=== PATIENT | male | born 1975 | race Caucasian/White ===

== ENCOUNTER 2022-08-01 13:02 | Emergency (ER) | payer SELFPAY ==
--- NOTE | ~2022-08-01 | CT_ITS ---
EXAMINATION: CT lumbar spine wo con DATE: 08/01/2022 13:47 INDICATION: Low back pain. TECHNIQUE: Computed tomography (CT) of the lumbar spine was performed without intravenous contrast. A utomated exposure control and iterative reconstruction technique were employed. The dose-length produ ct was 444.90 mGy-cm. COMPARISON: None FINDINGS: There is 4 degrees levocurvature of lumbar spine. There is mild chronic anterior wedging of T12 vertebral body. There are Schmorl's nodes at multiple levels. There is mildly decreased disc hei ght at T12-L1, L1-L2, L2-L3, and L3-L4. There are old fractures of left L2-L4 transverse processes. T he following disc levels are specifically discussed: T12-L1: The disc is bulging. There is mild bilateral facet joint osteoarthritis. There is no neural f oraminal stenosis. There is mild central canal stenosis. L1-L2: The disc is bulging. There is mild bilateral facet joint osteoarthritis. There is no neural fo raminal stenosis. There is mild central canal stenosis. L2-L3: The disc is bulging. There is mild bilateral facet joint osteoarthritis. There is mild bilater al neural foraminal stenosis. There is mild central canal stenosis. L3-L4: The disc is bulging. There is mild bilateral facet joint osteoarthritis. There is mild right a nd moderate left neural foraminal stenosis. There is mild central canal stenosis. L4-L5: The disc is bulging. There is mild bilateral facet joint osteoarthritis. There is moderate pili ateral neural foraminal stenosis. There is mild central canal stenosis. L5-S1: The disc is bulging. There is mild right and severe left facet joint osteoarthritis. There is mild right and moderate left neural foraminal stenosis. There is mild central canal stenosis. IMPRESSION: 1. Moderate lumbar spondylosis. Reviewed, dictated and finalized at location A. NE TURNER
--- NOTE | ~2022-08-01 | CT_ITS ---
EXAMINATION: CT hip LT wo con DATE: 08/01/2022 13:47 INDICATION: Posterior left hip pain TECHNIQUE: High resolution computed tomography (CT) of the left hip was performed without intravenous contrast. Additional sagittal and coronal reconstructions were performed. Automated exposure control and iterative reconstruction technique were employed. The dose-length product was 467.22 mGy-cm. COMPARISON: None FINDINGS: Bone alignment is normal. No fracture or suspected avascular necrosis. Mild left hip osteoarthritis w ith mild nonuniform joint space narrowing at the margin of the posterior and posterosuperior aspect o f the joint space. No left hip joint effusion. Mild osteoarthritis at the visualized portion of the l eft sacroiliac joint. Several phleboliths and no free fluid in the visualized left hemipelvis. No pat hologically enlarged left pelvic or inguinal lymphadenopathy. IMPRESSION: 1. Mild left hip and sacroiliac osteoarthritis. No hip joint effusion or acute osseous abnormality. Reviewed, dictated and finalized at location A. LER MACHINE OPERATOR
[2022-08-01 13:02] VITALS: BP 129/97; PULSE 82; RESP 16; TEMP 36.9; O2SAT 96
[2022-08-01] MEDS: KETOROLAC (*BKC) 60 MG/2 ML VIAL IM (13:54)
--- NOTE | 2022-08-01 14:01 | ED.BACK ---
HPI - Back Pain/Injury General Chief Complaint: Back Pain/Injury Stated Complaint: back and left hip pain Time Seen by Provider: 08/01/22 13:10 Source: patient Mode of arrival: ambulatory Limitations: no limitations History of Present Illness HPI Narrative: this is a 47-year-old gentleman that has been having left low back pain radiating to his left for the last week and today while work doing some intense lifting has increased pain that he rates about an 8/10 currently no numbness or tingling no dysuria no saddle paresthesias no fever chills. MD elicited complaint: back pain Pertinent past history: prior back pain Onset (ago): day(s) Timing: constant Severity: moderate Pain scale (0-10): 8 Quality: sharp Location: lumbar spine Context: while lifting Associated symptoms: denies other symptoms Related Data Allergies Allergy/AdvReac Type Severity Reaction Status Date / Time No Known Allergies Allergy Verified 08/01/22 13:25 Review of Systems Review of Systems: All systems reviewed & are unremarkable except as noted in HPI and below PMFSH Past Medical History Medical History Chronic back pain Exam Const: General: healthy appearing Nutritional Appearance: well nourished Orientation/consciousness: patient oriented x3 Limitations: no limitations HENMT: Head: normal to inspection Ears: external ears normal Face/Nose/Sinus: Normal external nose present Mouth: Yes Normal oral and palatal mucosa present Eyes: Conjunctivae: conjunctivae normal Pupils: Equal, round and reactive pupils present EOM: EOMs intact bilaterally Direct Ophthalmoscopy: no photophobia Neck: Neck: normal visual inspection, no lymphadenopathy and no meningeal signs Chest: Chest palpation & inspection: normal inspection of the chest Resp: Effort & Inspection: normal respiratory effort Auscultation: clear to auscultation bilaterally Cardio: Rate: regular rate Rhythm: regular rhythm GI: Auscultation: normal bowel sounds : General: Yes bladder normal to palpation Back/Spine/Pelvis: Back: no CVA tenderness Skin: General skin exam: normal color Rashes: no rashes Wounds: no wounds Neuro: General: patient oriented x3, moves all extremities, no meningeal signs and no focal motor deficits Extrem: General: normal to inspection Psych: Mental Status: mental status grossly normal Affect: normal affect Course Course Emergency Course: scans reviewed of his lower back and left hip and patient received 60mg IM Toradol and states his pain level has improved. Vital Signs Vital signs: Vital Signs Temperature 36.9 C 08/01/22 13:02 Pulse Rate 82 08/01/22 13:02 Respiratory Rate 16 08/01/22 13:02 Blood Pressure 129/97 H 08/01/22 13:02 Pulse Oximetry 96 08/01/22 13:02 Oxygen Delivery Room Air 08/01/22 13:02 Temperature 36.9 C 08/01/22 13:02 Pulse Rate 82 08/01/22 13:02 Respiratory Rate 16 08/01/22 13:02 Blood Pressure 129/97 H 08/01/22 13:02 Pulse Oximetry 96 08/01/22 13:02 Oxygen Delivery Room Air 08/01/22 13:02 Critical Care Time Critical Care Time Critical Care Time: No Discharge Plan Discharge Clinical Impression: Bulging lumbar disc Sciatica Qualifiers: Laterality: left Qualified Code(s): M54.32 - Sciatica, left side Strain of lumbar region Qualifiers: Encounter type: initial encounter Qualified Code(s): S39.012A - Strain of muscle, fascia and tendon of lower back, initial encounter Patient Disposition: Home, Self-Care Condition: Stable Instructions: Antibiotic Form, Sciatica (ED), Acute Low Back Pain (ED) Additional Instructions: and take medicine as prescribed and follow-up primary care physician if symptoms persist or worsen. Prescriptions: New tramadol 50 mg tablet 50 mg PO Q6H PRN (Reason: pain) Qty: 20 0RF Follow-up/Referrals: UNKNOWN,DOCTOR [Primary Care Provider] - Time of Disposi
[2022-08-01 14:03] VITALS: BP 111/76; PULSE 69; RESP 18; TEMP 37.1; O2SAT 96
== END 2022-08-01 14:31 | disposition home or self-care (01) ==
LOC: CHSED 14:06
PROVIDERS: Emergency Provider Emergency Medicine
DX: M54.32 Sciatica, left side (principal); S39.012A Strain of muscle, fascia and tendon of lower back, initial encounter; M51.36 Other intervertebral disc degeneration, lumbar region; X50.0XXA Overexertion from strenuous movement or load, initial encounter
CPT/HCPCS: 72131; 73700; 96372; 99284; J1885

== ENCOUNTER 2023-01-23 09:50 | Emergency (ER) | payer SELFPAY ==
[2023-01-23 09:52] VITALS: BP 136/83; PULSE 70; TEMP 36.2; O2SAT 99
[2023-01-23 10:01] VITALS: BP 136/83; PULSE 70; RESP 17; TEMP 36.2; O2SAT 99
--- NOTE | 2023-01-23 10:02 | ED.GENADULT ---
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 No fevers, chills, retention, incontinence, or focal weakness. Related Data Allergies Allergy/AdvReac Type Severity Reaction Status Date / Time No Known Allergies Allergy Verified 01/23/23 10:01 Review of Systems Review of Systems: All systems reviewed & are unremarkable except as noted in HPI and below Constitutional: Constitutional: Denies chills and Denies fever(s) ENT: Denies dysphagia Cardiovascular: Cardiovascular: Denies chest pain Respiratory: Respiratory: Denies dyspnea PMFSH Past Medical History Medical History Chronic back pain Exam Const: General: healthy appearing and no acute distress Nutritional Appearance: well nourished Eyes: Conjunctivae: conjunctivae normal Resp: Effort & Inspection: normal respiratory effort and not labored Cardio: Rate: regular rate GI: Inspection: non-distended Back/Spine/Pelvis: Back: no CVA tenderness Other: no spinal tenderness Skin: General skin exam: normal color, no jaundice and no pallor Neuro: General: patient oriented x3 and moves all extremities Gait exam (Neuro): Normal gait present Extrem: General: normal to inspection Course Vital Signs Vital signs: Vital Signs Temperature 36.2 C L 01/23/23 09:52 Pulse Rate 70 01/23/23 09:52 Blood Pressure 136/83 01/23/23 09:52 Pulse Oximetry 99 01/23/23 09:52 Oxygen Delivery Room Air 01/23/23 09:52 Temperature 36.2 C L 01/23/23 09:52 Pulse Rate 70 01/23/23 09:52 Blood Pressure 136/83 01/23/23 09:52 Pulse Oximetry 99 01/23/23 09:52 Oxygen Delivery Room Air 01/23/23 09:52 Medical Decision Making MDM Narrative Medical decision making narrative: left low back pain DDx sciatica, muscle spasm, muscle strain, neuroforaminal stenosis, no evidence of fracture, disc herniation, fracture, infection, or cauda equina Vital Signs Vital Signs: Vital Signs Temperature 36.2 C L 01/23/23 09:52 Pulse Rate 70 01/23/23 09:52 Blood Pressure 136/83 01/23/23 09:52 Pulse Oximetry 99 01/23/23 09:52 Oxygen Delivery Room Air 01/23/23 09:52 Temperature 36.2 C L 01/23/23 09:52 Pulse Rate 70 01/23/23 09:52 Blood Pressure 136/83 01/23/23 09:52 Pulse Oximetry 99 01/23/23 09:52 Oxygen Delivery Room Air 01/23/23 09:52 Discharge Plan Discharge Clinical Impression: Acute left-sided low back pain with left-sided sciatica Patient Disposition: Home, Self-Care Condition: Improved Instructions: Acute Low Back Pain (ED) Additional Instructions: Your symptoms appear to be from muscle strain and spasm in the low back and buttocks. Take the prescribed medication as needed to help your pain. Also apply a heating pad to the painful muscles several times a day. Prescriptions: New methocarbamol 500 mg tablet 1,000 mg PO Q6H PRN (Reason: muscle pain) Qty: 40 0RF Follow-up/Referrals: UNKNOWN,DOCTOR [Primary Care Provider] - Time of Disposition: 10:08
[2023-01-23] MEDS: ORPHENADRINE CITRATE 30 MG/ML 2 ML VIAL 60 MG IM (10:15)
[2023-01-23] MEDS: methocarbamoL 500 MG TABLET 1500 MG PO (10:16)
[2023-01-23 10:42] VITALS: BP 134/80; PULSE 74; RESP 17; TEMP 36.2; O2SAT 99
== END 2023-01-23 10:42 | disposition home or self-care (01) ==
PROVIDERS: Emergency Provider Emergency Medicine
DX: M54.42 Lumbago with sciatica, left side (principal)
CPT/HCPCS: 96372; 99283; A9270; J2360

== ENCOUNTER 2023-03-11 11:43 | Emergency (ER) | payer OTHER, SELFPAY ==
[2023-03-11 11:53] VITALS: BP 132/97; PULSE 74; RESP 17; TEMP 36.6; O2SAT 97
--- NOTE | 2023-03-11 12:50 | ED.WOUNDLAC ---
HPI - Wound/Laceration General Chief Complaint: Wound/Laceration Stated Complaint: right arm laceration Source: patient Mode of arrival: ambulatory Limitations: no limitations History of Present Illness HPI narrative: 47-year-old male with a history of chronic low back pain presents to the ER with -- 2 cm full skin thickness laceration of right forearm. Got cut with a sharp edge of metal. No other injuries noted. Onset (ago): hour(s) ( 1 hour) Extremity Location: Right: forearm Body four view annotation: 1. 2 cm full-thickness laceration right forearm. Place: work Patient tetanus UTD: No Context: accidental Associated symptoms: pain Related Data Home Medications Medication Instructions Recorded Confirmed No Home Medications 03/11/23 03/11/23 Allergies Allergy/AdvReac Type Severity Reaction Status Date / Time No Known Allergies Allergy Verified 03/11/23 11:52 Review of Systems Review of Systems: All systems reviewed & are unremarkable except as noted in HPI and below Constitutional: Constitutional: Reports as per HPI and Reports no additional constitutional complaints Eyes: Eyes: Reports as per HPI and Reports no additional eye complaints ENT: Reports system reviewed and no additional complaints, except as documented and Reports as per HPI Cardiovascular: Cardiovascular: Reports as per HPI and Reports no additional cardiovascular complaints Respiratory: Respiratory: Reports as per HPI and Reports no additional respiratory complaints Gastrointestinal: Gastrointestinal: Reports as per HPI and Reports no additional gastrointestinal complaints Genitourinary: Genitourinary: Reports no additional male genitourinary complaints Integumentary/Breasts: Skin/Breast: Reports system reviewed and no additional complaints, except as docu and Reports as per HPI Comments: 2 cm right forearm laceration Neurologic: Reports system reviewed and no additional complaints, except as documented and Reports as per HPI Psychiatric: Psychiatric: Reports no additional psychiatric complaints and Reports as per HPI Endocrine: Endocrine: Reports no additional endocrine complaints Hematologic/Lymphatic: Hematologic/Lymphatic: Reports no additional hematologic/lymphatic complaints Allergic/Immunologic: Allergic/Immunologic: Reports no additional allergic/immunologic complaints [facility] Past Medical History Medical History Chronic back pain Exam Const: General: no acute distress Orientation/consciousness: patient oriented x3 Limitations: no limitations HENMT: Head: normal to inspection Ears: external ears normal Face/Nose/Sinus: Normal external nose present Face and sinus: normal facial exam Mouth: Yes Normal oral and palatal mucosa present Throat: posterior oropharynx normal Eyes: Conjunctivae: conjunctivae normal Pupils: Equal, round and reactive pupils present EOM: EOMs intact bilaterally Direct Ophthalmoscopy: no photophobia Neck: Neck: normal visual inspection, no lymphadenopathy and no meningeal signs Chest: Chest palpation & inspection: normal inspection of the chest Resp: Effort & Inspection: normal respiratory effort Auscultation: clear to auscultation bilaterally Cardio: Rate: regular rate Rhythm: regular rhythm GI: GI Palp: Yes Soft to palpation Auscultation: normal bowel sounds Back/Spine/Pelvis: Back: no CVA tenderness Skin: General skin exam: normal color Other: 2 cm laceration right forea-rm full-thickness laceration Neuro: General: patient oriented x3, moves all extremities, no meningeal signs, no focal motor deficits and CN's II-XI intact bilaterally Extrem: General: normal to inspection Other: 2 cm right forearm laceration. Psych: Mental Status: mental status grossly normal Affect: normal affect Attitude: cooperative Course Course Emergency Course: Right forearm laceration-- full-thickness lac
[2023-03-11] MEDS: TETANUS,DIPHTHERIA,AC PERTUSSIS ADULT 0.5 ML (ADACEL) IM (13:04)
[2023-03-11 13:46] VITALS: BP 118/79; PULSE 59; RESP 17; TEMP 36.9; O2SAT 98
== END 2023-03-11 13:48 | disposition home or self-care (01) ==
PROVIDERS: Emergency Provider Internal Medicine Critical Care Medicine
DX: S51.811A Laceration without foreign body of right forearm, initial encounter (principal); Z23 Encounter for immunization; W26.8XXA Contact with other sharp object(s), not elsewhere classified, initial encounter
CPT/HCPCS: 12001; 90471; 90715; 99282

== ENCOUNTER 2023-09-24 00:53 | Emergency (ER) | payer SELFPAY ==
[2023-09-24 00:53] VITALS: BP 137/91; PULSE 51; RESP 18; TEMP 36.5; O2SAT 97
[2023-09-24 01:26] LABS: Hematocrit 46.7 % (40.0-54.0); Hemoglobin 15.8 g/dL (14.0-18.0); Mean Corpuscular HGB Conc 33.8 g/dL (32-36); Mean Corpuscular Hemoglobin 29.9 pg (27.0-31.0); Mean Corpuscular Volume 88.4 fL (78.0-102.0); Mean Platelet Volume 9.8 fl (8.7-11.0); Platelet Count Result 261 K/mm3 (150-420); Red Blood Count 5.28 M/mm3 (4.70-6.10); Red Cell Distribution Width 11.6 % (11.6-14.4); White Blood Count 11.4 K/mm3 (4.8-10.8)
[2023-09-24 02:02] LABS: Alanine Aminotransferase 16 U/L (16-63); Albumin Level 3.6 g/dL (3.4-5.0); Alkaline Phosphatase 120 U/L (46-116); Anion Gap 8 mmol/L (4-12); Aspartate Amino Transferase 11 U/L (15-37); Bilirubin,Total 0.4 mg/dL (0.00-1.00); Blood Urea Nitrogen 13 mg/dL (7-18); Calcium 9.5 mg/dL (8.5-10.1); Carbon Dioxide 32 mmol/L (21-32); Chloride 96 mmol/L (98-108); Estimated Glomerular Filt Rate > 60; Glucose 108 mg/dL (70-99); Osmolality Calculated 283 mOsm/kg (285-295); Potassium 3.1 mmol/L (3.5-5.1); Sodium 136 mmol/L (136-145); Total Protein 7.2 g/dL (6.4-8.2)
--- NOTE | 2023-09-24 02:08 | ED.NAVMDI ---
HPI - Nausea/Vomiting/Diarrhea General Chief complaint: Nausea/Vomiting/Diarrhea Stated complaint: Vomiting Source: patient Mode of arrival: ambulatory Limitations: no limitations History of Present Illness HPI Narrative: patient is a 48-year-old male with nausea vomiting for the past 5 days. No abdominal pain. No diarrhea. MD elicited complaint: nausea and vomiting Onset (ago): day(s) (5) Description of vomiting: watery Associated nausea: Yes Associated abdominal pain: No Location of pain: none Severity: mild Pain scale (0-10): 2 Exacerbating factors: none Relieving factors: none Associated symptoms: denies other symptoms Related Data Allergies Allergy/AdvReac Type Severity Reaction Status Date / Time No Known Allergies Allergy Verified 09/24/23 01:47 Review of Systems Review of Systems: All systems reviewed & are unremarkable except as noted in HPI and below Constitutional: Constitutional: Reports no additional constitutional complaints Eyes: Eyes: Reports no additional eye complaints ENT: Reports system reviewed and no additional complaints, except as documented Cardiovascular: Cardiovascular: Reports no additional cardiovascular complaints Respiratory: Respiratory: Reports no additional respiratory complaints Gastrointestinal: Gastrointestinal: Reports no additional gastrointestinal complaints Genitourinary: Genitourinary: Reports no additional male genitourinary complaints Musculoskeletal: Musculoskeletal: Reports no additional musculoskeletal complaints Integumentary/Breasts: Skin/Breast: Reports system reviewed and no additional complaints, except as docu Neurologic: Reports system reviewed and no additional complaints, except as documented Psychiatric: Psychiatric: Reports no additional psychiatric complaints Endocrine: Endocrine: Reports no additional endocrine complaints Hematologic/Lymphatic: Hematologic/Lymphatic: Reports no additional hematologic/lymphatic complaints Allergic/Immunologic: Allergic/Immunologic: Reports no additional allergic/immunologic complaints [facility] Past Medical History Medical History Chronic back pain Exam Const: General: healthy appearing Nutritional Appearance: well nourished Orientation/consciousness: patient oriented x3 HENMT: Head: normal to inspection Ears: external ears normal Face/Nose/Sinus: Normal external nose present Eyes: Conjunctivae: conjunctivae normal Cornea: corneas normal Pupils: Equal, round and reactive pupils present Neck: Neck: normal visual inspection Chest: Chest palpation & inspection: normal inspection of the chest Resp: Effort & Inspection: normal respiratory effort and not labored Auscultation: clear to auscultation bilaterally Cardio: Rate: regular rate Rhythm: regular rhythm Heart sounds: no murmurs GI: Inspection: non-distended GI Palp: Yes Soft to palpation and No Tenderness to palpation present (GI) Auscultation: normal bowel sounds : General: Yes bladder normal to palpation Back/Spine/Pelvis: Back: no CVA tenderness Skin: General skin exam: normal color Rashes: no rashes Wounds: no wounds Neuro: General: patient oriented x3 Cranial nerves: Yes Nystagmus not present Speech: normal speech Extrem: General: normal to inspection Psych: Mental Status: mental status grossly normal Affect: normal affect Attitude: cooperative MDM - Nausea/Vomiting/Diarrhea MDM Narrative Medical decision making narrative: Patient is a 48-year-old male with nausea and vomiting for the past 5 days. His laboratory studies were done for workup and they are stable. We decided not to do the CT scan as he does not have abdominal pain. We will give him some Zofran and Tramadol and potassium. patient gets headaches after his vomiting episodes. We will send home with some Zofran and tramadol. we decided not to do fluids with stable chemistry panel. Lab Data Attestation
[2023-09-24] MEDS: ONDANSETRON HCL ODT 4 MG TABLET PO (02:35)
[2023-09-24] MEDS: traMADol HCL (*CRX) 50 MG TABLET 100 MG PO (02:35)
[2023-09-24] MEDS: POTASSIUM CHLORIDE 20 MEQ ER TABLET PO (02:36)
== END 2023-09-24 03:05 | disposition home or self-care (01) ==
PROVIDERS: Emergency Provider Emergency Medicine
DX: K52.9 Noninfective gastroenteritis and colitis, unspecified (principal)
CPT/HCPCS: 36415; 80053; 85027; 99283; A9270

== ENCOUNTER 2023-09-26 07:26 | Emergency (ER) | payer SELFPAY ==
[2023-09-26] VITALS (57 sets, daily range): BP systolic 100–163; BP diastolic 69–98; PULSE 50–100; RESP 11–30; TEMP 36.2–38.7; O2SAT 88–99
--- NOTE | ~2023-09-26 | CT_ITS ---
EXAMINATION: CT abdomen pelvis w con DATE: 09/26/2023 14:16 INDICATION: Fever. Nausea and vomiting. TECHNIQUE: Computed tomography (CT) of the abdomen and pelvis was performed with 100 mL Omnipaque 350 intravenous contrast. Automated exposure control and iterative reconstruction technique were employe d. The dose-length product was 585.35 mGy-cm. COMPARISON: None. FINDINGS: The visualized portions of the lung bases demonstrate mild atelectasis. No pleural effusion . The heart size is normal. No pericardial effusion. There are cysts in the liver measuring up to 8 m m. The gallbladder, spleen, pancreas, adrenal glands, and right kidney are normal. There is mild atro phy of left kidney. There are no dilated loops of bowel. The appendix is normal. There is calcified a therosclerosis of the aorta and many of the other arteries. There are no pathologically enlarged lymp h nodes. There is no free intraperitoneal fluid. There are old fractures of left L2-L4 transverse pro cesses. There is mild thoracic and lumbar spondylosis. There is mild chronic height loss of multiple vertebral bodies. IMPRESSION: 1. No etiology for the patient's symptoms. Reviewed, dictated and finalized at location A.
--- NOTE | ~2023-09-26 | XR_ITS ---
EXAMINATION: XR chest 1V portable DATE: 09/26/2023 08:26 INDICATION: Confusion. TECHNIQUE: A single frontal view of the chest was obtained. COMPARISON: None. FINDINGS: There is no pneumonia, pleural effusion, or pneumothorax. The heart size is normal. IMPRESSION: 1. No acute cardiopulmonary disease. Reviewed, dictated and finalized at location A.
--- NOTE | ~2023-09-26 | CT_ITS ---
EXAMINATION: CT brain wo con DATE: 09/26/2023 08:26 INDICATION: Confusion. TECHNIQUE: Computed tomography (CT) of the head was performed without intravenous contrast. The mA wa s adjusted according to patient size. Iterative reconstruction technique was employed. The dose-lengt h product was 681.00 mGy-cm. COMPARISON: None FINDINGS: There is no intracranial hemorrhage, acute infarction, or abnormal intracranial mass lesion . The ventricles are normal in size. There is minimal mucosal thickening in the maxillary sinuses. Pa rtially visualized is dental disease. The mastoid air cells are normal. IMPRESSION: 1. Normal brain. Reviewed, dictated and finalized at location A. IMPRESSION: 1. Normal brain.
--- NOTE | 2023-09-26 07:35 | ED.AMS ---
HPI - Altered Mental Status General Chief Complaint: Altered Mental Status Stated Complaint: confusion Time Seen by Provider: 09/26/23 07:35 Source: family Mode of arrival: ambulatory History of Present Illness HPI narrative: patient came to the emergency room with his girlfriend from home . His girlfriend complaining that patient been disoriented, confused since yesterday afternoon. She denies any fever or chills or nausea or vomiting or drug abuse or alcohol intake. Patient smokes marijuana at least 3 times a day, did not use marijuana over the last 2-3 days. She reports that patient had quite a bit of vomiting and dizziness and headache diaphoresis started 5 days ago resolved 2 days ago. She denies any recent trauma, or psych history Related Data Allergies Allergy/AdvReac Type Severity Reaction Status Date / Time No Known Allergies Allergy Verified 09/26/23 07:31 Review of Systems Review of Systems: All systems reviewed & are unremarkable except as noted in HPI and below ROS unobtainable: Yes unobtainable due to mental status PMFSH Past Medical History Medical History Chronic back pain Exam Narrative: General appearance: Well-developed, well-nourished Skin: Normal color Head: Normocephalic, nontraumatic Eyes: Clear conjunctiva ENT: Oropharynx normal, ears normal, nose normal Neck: Supple, nontender Chest and respiratory: Airway patent, no respiratory distress, no accessory muscle use Heart: Regular rate/rhythm Abdomen: Soft, nontender, no organomegaly, quiet bowel sounds Vascular: Normal peripheral pulses, normal capillary refill. Musculoskeletal: Normal range of motion, nontender back Neurologic: Alert , disoriented x4, does not follow commands Course Reevaluation(s) Reevaluation #1: patient started getting agitated, 2 mg of Ativan IV given Date: 09/26/23 Time: 09:45 Vital Signs Vital signs: Vital Signs Pulse Rate 51 L 09/26/23 07:30 Respiratory Rate 13 09/26/23 07:30 Pulse Oximetry 96 09/26/23 07:30 Temperature 37.0 C 09/26/23 07:38 Pulse Rate 63 09/26/23 10:58 Respiratory Rate 17 09/26/23 10:01 Blood Pressure 147/98 H 04/12/24 10:58 Pulse Oximetry 98 09/26/23 11:19 Oxygen Delivery Room Air 09/26/23 07:38 MDM - Altered Mental Status MDM Narrative Medical decision making narrative: patient came to the ED with altered mental status Differential diagnosis drug overdose, drug withdrawal, alcohol intoxication, electrolyte imbalance, dehydration, intracranial pathology, measure/severe depression Blood workup today showed WBC of 13.2 blood gas showed metabolic alkalosis potassium 2.8, creatinine 1.3, chest x-ray and he and CT scan of the brain without contrast showed no acute abnormalities In the ED patient received 2 L of normal saline IV, 2 mg of Ativan IV, 90.4 Narcan IV Differential Diagnosis Differential diagnosis: Likely other (As above) Medical Records Attestation: I reviewed the patient's medical records. Lab Data Attestation: I reviewed the patient's lab results. 09/26/23 07:51 09/26/23 07:51 Labs: Lab Results 09/26/23 09/26/23 09/26/23 Range/Units 07:37 07:51 09:22 WBC 13.2 H (4.8-10.8) K/mm3 RBC 5.96 (4.70-6.10) M/mm3 Hgb 18.3 H (14.0-18.0) g/dL Hct 52.6 (40.0-54.0) % MCV 88.3 (78.0-102.0) fL MCH 30.7 (27.0-31.0) pg MCHC 34.8 (32-36) g/dL RDW 11.6 (11.6-14.4) % Plt Count 334 (150-420) K/mm3 MPV 10.0 (8.7-11.0) fl Immature Gran % (Auto) 0.6 H (0.0-0.0) % Neut % (Auto) 82.0 H (50.0-70.0) % Lymph % (Auto) 10.1 L
--- NOTE | 2023-09-26 07:36 | ECG_ITS ---
SEE SCANNED COPY FOR CONFIRMED REPORT MTDD
[2023-09-26 07:40] LABS: Glucose Point of Care 125 mg/dl (65-105)
[2023-09-26 07:56] LABS: Base Excess ABG 15.1 mmol/L (0-2); HCO3 ABG 40.3 mmol/L (23-29); Oxygen Content ABG 20.3 %vol (16.0-22.0); PCO2 ABG 48.2 mmHg (35-45); PO2 ABG 60.6 mmHg (80-90); Total Hemoglobin 18.1 g/dL (12.0-18.0); pH ABG 7.54 (7.35-7.45)
[2023-09-26 07:57] LABS: Basophils Absolute Auto 0.04 K/mm3 (0.00-0.10); Basophils Percent Auto 0.3 % (0.0-1.0); Eosinophils Absolute Auto 0.02 K/mm3 (0.02-0.50); Eosinophils Percent Auto 0.2 % (1.0-6.0); Hematocrit 52.6 % (40.0-54.0); Hemoglobin 18.3 g/dL (14.0-18.0); Immature Granulocyte Absolute 0.08 K/mm3 (0.00-0.00); Immature Granulocyte Percent A 0.6 % (0.0-0.0); Lymphocytes Absolute Auto 1.34 K/mm3 (1.10-4.50); Lymphocytes Percent Auto 10.1 % (18.0-42.0); Mean Corpuscular HGB Conc 34.8 g/dL (32-36); Mean Corpuscular Hemoglobin 30.7 pg (27.0-31.0); Mean Corpuscular Volume 88.3 fL (78.0-102.0); Monocytes Percent Auto 6.8 % (2.0-11.0); Neutrophils Absolute Auto 10.86 K/mm3 (1.70-7.20); Platelet Count Result 334 K/mm3 (150-420); Red Blood Count 5.96 M/mm3 (4.70-6.10); Red Cell Distribution Width 11.6 % (11.6-14.4); White Blood Count 13.2 K/mm3 (4.8-10.8)
[2023-09-26 07:58] LABS: Device ROOM AIR; Modified Allen's Test Pass; Site Drawn LEFT RADIAL
[2023-09-26 08:14] LABS: Partial Thromboplastin Time 30.5 Sec (23.9-30.70); Prothrombin Time 11.3 Seconds (9.50-12.1)
[2023-09-26] MEDS: NALOXONE HCL 0.4 MG/ML VIAL IV PUSH (08:18)
--- NOTE | 2023-09-26 08:19 | PC.NURSE ---
RN CALLED TO CT DUE TO PT UNABLE TO COMPLY WITH INSTRUCTIONS OR SIT STILL. ERP IS NOTIFIED. ERP ESTABLISHED, NARCAN ADMINISTERED IN CT, NO CHANGE IN PT STATUS. INSTALLER INSPECTOR FINAL ABLE TO OBTAIN CT WITH RN ASSISTANCE. WILL CONTINUE TO MONITOR.
[2023-09-26 08:24] LABS: Alanine Aminotransferase 20 U/L (16-63); Albumin Level 4.3 g/dL (3.4-5.0); Alkaline Phosphatase 149 U/L (46-116); Anion Gap 6 mmol/L (4-12); Aspartate Amino Transferase 14 U/L (15-37); Bilirubin,Total 0.5 mg/dL (0.00-1.00); Blood Urea Nitrogen 21 mg/dL (7-18); Calcium 10.2 mg/dL (8.5-10.1); Carbon Dioxide 44 mmol/L (21-32); Chloride 85 mmol/L (98-108); Creatine Kinase 47 U/L (39-308); Estimated CRCL calculation 62 ml/min; Estimated Glomerular Filt Rate 57; Glucose 126 mg/dL (70-99); Osmolality Calculated 285 mOsm/kg (285-295); Potassium 2.8 mmol/L (3.5-5.1); Salicylate 1.7 mg/dL (2.8-20.0); Sodium 135 mmol/L (136-145); Total Protein 8.7 g/dL (6.4-8.2)
[2023-09-26] MEDS: SODIUM CHLORIDE 0.9% IV 1,000 ML 999 ML IV CONT ×2 (08:24→08:29)
[2023-09-26 08:25] LABS: Acetaminophen 0 ug/mL (10-30); Ethanol < 3 mg/dL (0-6); Troponin I < 4.0 ng/L (0.00-60.4)
[2023-09-26 08:34] LABS: Ammonia 11 umol/L (11-32)
--- NOTE | 2023-09-26 08:40 | PC.NURSE ---
PT IS CONFUSED, DOES NOT KNOW WHO IS GIRLFRIEND IS OR WHAT HER NAME IS. PT DOES NOT KNOW WHERE HE IS OR WHY HE IS HERE. PT DENIES HEADACHE, NECK PAIN, OR ANY PAIN AT THIS TIME. PT CONTINUES TO CLIMB OUT OF BED, PULL OF MONITOR LEADS AND HOSPITAL GOWN. PT BECOMES AGITATED WHEN HE CANNOT ARTICULATE HIS THOUGHTS INTO WORDS, AND WHEN HE DOES SPEAK, IT IS UNINTELLIGIBLE. PT HAS WORD SALAD SPEECH, CONFUSION NOTED. ERP WAS NOTIFIED AND MEDICATIONS WERE ADMINISTERED ORDERED WITHOUT DIFFICULTY. WARM BLANKETS, EXTRA PILLOWS, AND LIGHTS ARE OFF WITH SIG OTHER AT BEDSIDE. VSS PER MONITOR. WILL CONTINUE TO MONITOR. PT DOES CALM WITH MEDICATION.
[2023-09-26] MEDS: LORazepam INJ (*CRX) 2 MG/ML VIAL IV PUSH (08:51)
--- NOTE | 2023-09-26 09:22 | PC.NURSE ---
PT IS MORE CALM, RESTING-HOWEVER ANY NOISE OR MOVEMENT AND PT IS RESTLESS. SIG OTHER REMAINS AT BEDSIDE. WILL CONTINUE TO MONITOR.
[2023-09-26 09:28] LABS: Influenza A QL RT-PCR Negative (Negative); Influenza B QL RT-PCR Negative (Negative); RSV RNA, RT-PCR Negative (Negative); SARS-CoV-2 RNA PCR Negative (Negative)
[2023-09-26] MEDS: KCL 20 MEQ/SW 100 ML 100 ML 50 MEQ IVPB (09:30)
--- NOTE | 2023-09-26 09:45 | PC.NURSE ---
SIG OTHER REQUESTING [facility] FOR TRANSFER, [facility] NOTIFIED. FACE SHEET FAXED TO [phone]. PT IS RESTLESS, DOES CALM AFTER A WHILE. PT CONTINUES TO BE CONFUSED, NOT KNOWING WHERE HE IS OR WHO HIS SIG OTHER IS. SHE REPORTS THEY HAVE LIVED TOGETHER FOR 6 YEARS.
--- NOTE | 2023-09-26 09:51 | PC.NURSE ---
ERP AT BEDSIDE
[2023-09-26] MEDS: LORazepam INJ (*CRX) 2 MG/ML VIAL 1 MG IV PUSH (10:46)
--- NOTE | 2023-09-26 10:52 | PC.NURSE ---
PT HAS RETURNED FROM CT, DIRECTOR RECORDS MANAGEMENT REPORTS THEY ARE UNABLE TO OBTAIN IMAGES DUE TO PT BEING UNCOOPERATIVE, UNABLE TO FOLLOW DIRECTIONS OR LIE STILL. PT RETURNS TO ER AGITATED, CONFUSED, AND RESTLESS. PT DOES CALM, HOWEVER IS WILL NOT LIE STILL, REMAINS RESTLESS. PT CONTINUES TO BE CONFUSED, ERP WAS NOTIFIED, PT WAS ATTEMPTING TO CLIMB OUT OF BED. MEDICATION WAS ADMINISTERED ORDERED WITHOUT DIFFICULTY. PT HAS BEEN ACCEPTED TO [facility] IN [place], IS AWAITING A ROOM ASSIGNMENT AT THIS TIME. WILL CONTINUE TO MONITOR.
[2023-09-26] MEDS: HALOPERIDOL LACTATE 5 MG/ML VIAL IM (11:12)
[2023-09-26 11:17] LABS: Glucose Point of Care 122 mg/dl (65-105)
--- NOTE | 2023-09-26 11:22 | PC.NURSE ---
PT BECOMES RESTLESS SIG OTHER IS TOUCHING AND TALKING TO PT. HE HAS PULLED OUT HIS IV ACCESS, SITE HAS DRESSING APPLIED AND NEW ACCESS IS OBTAINED. PT WAS MEDICATED PER ERP ORDER. SIG OTHER HAS LEFT, IS TO RETURN. IVF AND MEDICATIONS ARE INFUSING ORDERED WITHOUT DIFFICULTY. PT IS MORE CALM, SLIGHTLY RESTLESS. LIGHTS ARE OFF, WARM BLANKETS ARE PROVIDED. WILL CONTINUE TO MONITOR.
--- NOTE | 2023-09-26 11:56 | PC.NURSE ---
PT WAS ROLLING AROUND ON STRETCHER, CONFUSED AND PULLED OUT IV SITE IN RT HAND. DRESSING APPLIED. ANOTHER LINE ESTABLISHED. PT IS PLACED IN DRY GOWN, LINENS CHANGED AND DEPEND IN PLACE. SIG OTHER HAS RETURNED. VSS PER MONITOR. IV MEDICATIONS AND FLUIDS ARE INFUSING ORDERED WITHOUT DIFFICULTY. WILL CONTINUE TO MONITOR.
--- NOTE | 2023-09-26 13:17 | PC.NURSE ---
PT IS RESTING ON STRETCHER, SIG OTHER HAS LEFT. DENZEL [phone]. SHE IS TO RETURN. SHE HAS BEEN UPDATED ON PT STATUS. PT CONTINUES TO AWAIT A ROOM ASSIGNMENT AT [facility]. WILL CONTINUE TO MONITOR.
[2023-09-26] MEDS: KETOROLAC 30 MG/ML VIAL (*BKC) IV PUSH (13:37)
--- NOTE | 2023-09-26 13:40 | PC.NURSE ---
PT RESTLESS, CALMED DOWN. PT IS NOTED HOT TO TOUCH, UPON RECHECK OF TEMPERATURE, IT IS NOTED 100.8F. ERP IS NOTIFIED AND MEDICATIONS WERE GIVEN ORDERED. WILL CONTINUE TO MONITOR.
[2023-09-26] MEDS: PIPERACILLN/TAZ 3.375GM/NS50ML 3.375 GM/50 ML BAG IVPB (14:46)
[2023-09-26 14:51] LABS: Appearance Urine Clear (Clear); Bilirubin Urine Negative (Negative); Blood Urine 1+ (Negative); Color Urine Yellow (Yellow); Glucose Urine UA Negative (Negative); Ketones Urine Negative (Negative); Leukocyte Esterase Ur Negative LEU/UL (Negative); Nitrate Urine Negative (Negative); Protein Urine 2+ (Negative); pH Urine 8.5 (5.0-8.0)
--- NOTE | 2023-09-26 14:51 | PC.NURSE ---
PT WAS STRAIGHT CATHED FOR URINE SAMPLE ORDERED. PT TOLERATED WELL. SAMPLE SENT TO LAB, TO AWAIT BLOOD CULTURE COLLECTION PRIOR TO STARTING ABX. PT TEMP IS CURRENTLY 101.6F, ERP IS AWARE. WILL CONTINUE TO MONITOR.
--- NOTE | 2023-09-26 15:17 | PHAR ---
confirmed w/md wants dexamethasone 11mg per dose, not 10mg.
[2023-09-26 15:18] LABS: Add Urine Microscopic? YES; RBC Urine 0-2 /hpf (0-2); Squamous Epithelial Cell Urine Rare /hpf (Few); WBC Urine 0-3 /hpf (0-3)
[2023-09-26 15:19] LABS: Bacteria Urine Rare /hpf
[2023-09-26] MEDS: ACETAMINOPHEN 650 MG SUPPOSITORY RECTAL (15:23)
[2023-09-26] MEDS: dexAMETHasone SOD PHOS INJ 10 MG/ML 1 ML VIAL 11 MG IV PUSH ×2 (15:24→21:56)
[2023-09-26] MEDS: cefTRIAXone 2 GM/NS 100 ML 2 GM/100 ML BAG IVPB ×2 (15:24→21:57)
[2023-09-26 15:32] LABS: Amphetamine Screen Urine Negative (Negative); Barbiturate Screen Urine Negative (Negative); Benzodiazepines Screen Urine Negative (Negative); Cannabinoid Screen Urine Positive (Negative); Cocaine Screen Urine Negative (Negative); Methadone Screen Urine Negative (Negative); Opiate Screen Urine Negative (Negative); Phencyclidine Screen Urine Negative (Negative)
--- NOTE | 2023-09-26 15:32 | PC.NURSE ---
PT IS RESTING ON STRETCHER WITH IV MEDICATIONS INFUSING ORDERED WITHOUT DIFFICULTY. PT IS AWAITING RESULTS AND ROOM ASSIGNMENT. WILL CONTINUE TO MONITOR.
[2023-09-26 15:51] LABS: Lactic Acid Reflex 1.8 mmol/L (0.4-2.0)
[2023-09-26] MEDS: VANCOMYCIN 1,750 MG/NS 500 ML 1,750 MG/500 ML BAG 250 MG IVPB (16:01)
--- NOTE | 2023-09-26 17:10 | PC.NURSE ---
SPOKE WITH ANGELA MAHONEY TO UPDATE BED STATUS AND ADVICE, DENISSE IS REQUESTING TO CONTACT OTHER FACILITIES. SHE IS AWARE OF PLAN OF CARE AND AGREEABLE TO THIS. [facility] DOES NOT HAVE ANY BEDS AVAILABLE AT THIS TIME. [facility] IS STILL AWAITING DISCHARGES. WILL BE CONTACTING OTHER FACILITIES AT THIS TIME.
--- NOTE | 2023-09-26 17:32 | PC.NURSE ---
PT IS RESTING WITHOUT DIFFICULTY. IV MEDICATIONS ARE INFUSING ORDERED WITHOUT DIFFICULTY. WILL CONTINUE TO MONITOR.
--- NOTE | 2023-09-26 22:21 | PC.NURSE ---
Spoke with significant other about patient update. Agreeable to transfer to [facility] rm [id number]. phone number if needed for Jess Viera- [phone]. She is emergency contact, family is in [place].
--- NOTE | 2023-10-02 12:18 | PC.NURSE ---
09/25/23 POSITIVE BLOOD CULTURES RECEIVED AND [facility] RE[facility] NURSE WAS NOTIFIED OF PT
== END 2023-09-26 22:58 | disposition short-term general hospital (02) ==
PROVIDERS: Emergency Provider Emergency Medicine
DX: G93.41 Metabolic encephalopathy (principal); E87.3 Alkalosis; E87.6 Hypokalemia; E86.0 Dehydration; Z20.822 Contact with and (suspected) exposure to COVID-19
CPT/HCPCS: 36415; 36600; 70450; 71045; 74177; 80053; 80307; 81001; 82140; 82550; 82805; 82948; 83605; 84443; 84484; 85025; 85610; 85730; 87040; 87147; 87181; 87637; 93005; 96361; 96365; 96366; 96367; 96372; 96375; 96376; 99291; A9270; J0696; J1100; J1630; J1885; J2060; J2310; J2543; J3370; J3480; J7030; Q9967